=== PATIENT | female | born 1980 | race Caucasian/White ===

== ENCOUNTER 2017-05-19 13:42 | Emergency (ER) | payer OTHER ==
[~2017-05-19] VITALS: Ht 162.6 cm; Wt 97.5 kg
[~2017-05-19 13:42] MED LIST: IRON325 M1 PO; LABETALOL HCL100 MG PO; PERCOCET 5-3251 EACH PO; PRENATAL VITAM1 EACH PO
[2017-05-19] MEDS ORDERED: ZESTRIL10 MG PO (14:05)
--- OUTSIDE RECORDS SUMMARY | 2017-05-19 15:12 | XMS ---
Demographics + + + | Address | [address] | | | [place] [address] | + + + | Home Phone | | + + + | Preferred Language | Unknown | + + + | Marital Status | Never | + + + | Jehovah'S Witness Affiliation | Unknown | + + + | Race | Other Race | + + + | Ethnic Group | Not or | + + + Author + + + | Author | [facility] | + + + | Organization | [facility] | + + + | Address | [address] | | | [place] [address] | + + + | Phone | | + + + Care Team Providers + + + + | Care Research And Development Engineer Name | Role | Phone | + + + + PCP | Unavailable | + + + + | Aarti Young | FlorProvider | | + + + + Allergies and Adverse Reactions + + +-------+ | Name | Reaction | Notes | + + +-------+ | NO KNOWN DRUG ALLERGIES | | | + + +-------+ Plan of Treatment Not available. Medications +--------+ | Active | +--------+ + + + + + + | Name | Start Date | Estimated | SIG | Comments | | | | Completion Date | | | + + + + + + | azithromycin | 05/16/2017 | 05/21/2017 | take 2 tablets | | | 250 mg oral | | | (500 mg) by | | | tablet | | | oral route once | | | | | | daily for 1 | | | | | | day then 1 | | | | | | tablet (250 mg) | | | | | | by oral route | | | | | | once daily for | | | | | | 4 days | | + + + + + + | pseudoephedrine | 05/16/2017 | 05/23/2017 | take 1 tablet | | | HCl 60 mg oral | | | (60 mg) by oral | | | tablet | | | route every 6 | | | | | | hours as needed | | | | | | for 7 days | | + + + + + + +---------+ | | +---------+ + + + + + + | Name | Start Date | Expiration Date | SIG | Comments | + + + + + + | promethazine-co | 03/05/2013 | 03/12/2013 | take 5 - 7.5mls | | | deine 6.25-10 | | | po Q 6 hrs prn | | | mg/5 mL oral | | | cough; do not | | | syrup | | | exceed 30 mls | | | | | | in 24hrs | | + + + + + + | sulfamethoxazol | 09/09/2013 | 09/19/2013 | take 1 tablet | | | e-trimethoprim | | | by oral route 2 | | | 800-160 mg oral | | | times per day | | | tablet | | | for 10 days | | + + + + + + | amoxicillin 875 | 12/02/2013 | 12/12/2013 | take 1 tablet | | | mg oral tablet | | | (875 mg) by | | | | | | oral route | | | | | | every 12 hours | | | | | | for 10 days | | + + + + + + | Zithromax 250 | 06/21/2016 | 07/01/2016 | take 2 tablets | | | mg oral tablet | | | (500 mg) by | | | | | | oral route once | | | | | | daily for 1 | | | | | | day then 1 | | | | | | tablet (250 mg) | | | | | | by oral route | | | | | | once daily for | | | | | | 4 days | | + + + + + + Problem List Not available. Vital Signs Not available. Social History Not available. History of Procedures + + + + | Date Ordered | Description | Order Status | + + + + | 09/09/2013 12:00 AM | URINE CULTURE/COLONY COUNT | Reviewed | + + + + Results Summary + + + | Date and Description | Results | + + + | 09/09/2013 5:00 PM | RESULT #1 09/10/2013 AM RESULT #1 no | | | growth after overnight incubation RESULT | | | #2 09/11/2013 AM RESULT #2 40,000 CFU/ML | | | mixed melissa RESULT #3 Bacteria isolated | | | probably represent contaminating | + + + History Of Immunizations Not available. History of Past Illness + + + + | Name | Date of Onset | Comments | + + + + | Sinusitis | Mar 05 2013 10:31AM | | + + + + | Sinusitis | May 06 2013 8:39AM | | + + + + | Sinusitis | Jul 23 2013 10:38AM | | + + + + | Sinusitis | Dec 02 2013 2:48PM | | + + + + | Sinusitis | May 16 2017 10:48AM | | + + + + Payers Not available. History of Encounters Not available."
--- OUTSIDE RECORDS SUMMARY | 2017-05-19 15:12 | XMS ---
Demographics + + + | Address | [address] | | | [place] [address] | + + + | Home Phone | | + + + | Preferred Language | Unknown | + + + | Marital Status | Never | + + + | Latter-Day Affiliation | Unknown | + + + | Race | Other Race | + + + | Ethnic Group | Not or | + + + Author + + + | Author | [facility] | + + + | Organization | [facility] | + + + | Address | [address] | | | [place] [address] | + + + | Phone | | + + + Care Team Providers + + + + | Care Bartenders Name | Role | Phone | + + + + PCP | Unavailable | + + + + | Aarti Young | PreferredProvider | | + + + + Allergies [...] + + + + | azithromycin | 11/28/2016 | | take 2 tablets | | | [...] + + + + | pseudoephedrine | 06/21/2016 | 06/28/2016 | take 1 tablet | | | [...] 2:48PM | | + + + + Payers Not available. History of Encounters Not available."
[2017-05-19] MEDS ORDERED: NORCO 5-325 TA1 EACH PO (15:30)
== END 2017-05-19 16:32 | disposition home or self-care (01) ==
LOC: ED 13:42
DX: R07.81 Pleurodynia (principal); I10 Essential (primary) hypertension; Z79.899 Other long term (current) drug therapy
CPT/HCPCS: 71046; 80053; 81001; 83690; 84484; 85025; 96374; 99284; J1885